=== PATIENT | female | born 1955 | race Caucasian/White ===

== ENCOUNTER 2019-12-02 08:07 | Outpatient (CLI) | payer MEDICARE ==
--- NOTE | 2019-12-02 09:54 | CT ---
CT OF ABDOMEN AND PELVIS PERFORMED WITH INTRAVENOUS CONTRAST ENHANCEMENT: HISTORY: Rectal cancer found on colonoscopy. History of diarrhea. Endometrial cancer 15 years ago with hyste rectomy and radiation. History of cholecystectomy. COMPARISON: A CT examination of 05/25/2019. FINDINGS: The lung bases are clear. The liver and spleen as well as pancreas regions appear unremarkable. An area of focal fatty change adjacent to the falciform ligament is incidentally noted. The gallbladder has been removed. Right and left adrenal glands and right and left kidneys are normal in size. There is no significant periaortic or mesenteric lymphadenopathy. CT OF PELVIS PERFORMED WITH CONTRAST ENHANCEMENT: An umbilical hernia is seen. The hernia contains colon without signs of obstruction. A portion of t he colon is a portion of the mid transverse colon. There is marked soft tissue thickening to the reg ion of the rectum consistent with the history of a rectal mass. There is also what appears to be shanita e type of perianal fissure or possibly a chronic infectious process. There is an air density seen wh ich appears to be outside the bowel and along the left side of the rectum region extending into a per ianal location on the left with soft tissue fullness. I am not certain how much of this is related t o a chronic infectious process or tumor infiltration. I do not appreciate any significant pelvic lym phadenopathy or mass. IMPRESSION: 1. Wall thickening to the rectum with some presacral fat stranding and what appears to be a left-marsha ed perianal fissure with an air collection along the left side of the rectum and anus region. There is no fluid collection. I am not certain what a portion of this is related to a chronic infectious p rocess with scarring granulation tissue and how much of this could be related to tumor infiltration. There was what appeared to be more of a perianal fluid collection on the previous 05/25/2019 exam. T here is no significant pelvic lymphadenopathy. 2. Umbilical hernia containing colon. 3. Post cholecystectomy change. POS: VAUGHN
[2019-12-02] MEDS ORDERED: Iopamidol-370 76% 500 ML 1 ML ONE (14:12)
== END 2019-12-02 08:08 | disposition home or self-care (01) ==
LOC: BICCT 08:07
PROVIDERS: ATTEND Internal Medicine Gastroenterology
DX: C20 Malignant neoplasm of rectum (principal); K42.9 Umbilical hernia without obstruction or gangrene; K62.89 Other specified diseases of anus and rectum; Z90.49 Acquired absence of other specified parts of digestive tract
CPT/HCPCS: 74177; Q9967

== ENCOUNTER 2019-12-14 07:44 | Outpatient (CLI) | payer MEDICARE ==
[2019-12-14 08:12] LABS: Estimated GFR-MDRD - POC Greater than 90
--- NOTE | 2019-12-14 08:35 | CT ---
CT CHEST WITH IV CONTRAST: INDICATION: Rectal CA. Staging. COMPARISON: No comparison. FINDINGS: Review of lung vang reveals a 5 mm pleural-based nodule anterior right middle lobe. No other pulmonary mass or nodule identified. There is no effusion or infiltrate. The mediastinum is unremarkable. No adenopathy. Mild atherosclerotic changes in the thoracic aorta. Possible pulmonary arteries opacified and there is no evidence of proximal pulmonary embolus. No a xillary adenopathy. Images through the upper abdomen are unremarkable. Osseous structures unremarka ble. IMPRESSION: A 5-6 mm pleural-based nodule anterolateral right middle lobe. Recommend followup noncontrast CT [facility] in 6 months to assess stability. POS: AGW
[2019-12-14] MEDS ORDERED: Iopamidol 370 76% 100 ML VIAL ONE (13:40)
== END 2019-12-14 07:45 | disposition home or self-care (01) ==
LOC: BICCT 07:44
PROVIDERS: ATTEND Internal Medicine Hematology & Oncology
DX: C20 Malignant neoplasm of rectum (principal); R91.1 Solitary pulmonary nodule
CPT/HCPCS: 71260; 82565; Q9967

== ENCOUNTER 2020-01-04 06:41 | Outpatient (CLI) | payer MEDICARE, OTHER ==
[2020-01-04 16:35] LABS: Anisocytosis SLIGHT = 6-15 cells (100X) (0-5/hpf); Band 18 % (5-11); Eosinophils 3 % (0-10); Hemoglobin 10.7 g/dL (12.0-16.0); Hypochromia SLIGHT = 6-15 cells (100X) (0-5/hpf); Lymphocytes 8 % (21-51); MDiff Complete? YES; Mean Corpuscular HGB CONC 31.4 g/dL (32.0-36.0); Mean Corpuscular Hemoglobin 26.6 pg (27.0-31.0); Mean Corpuscular Volume 84.8 fL (78.0-98.0); Mean Platelet Volume 7.5 fL (7.4-10.4); Monocytes 2 % (0-10); Neutrophil 69 % (42-75); Platelet Count 578 thou/uL (130-400); Platelet Morphology Comment Appears Increased; Polychromasia SLIGHT = 2-3 cells (100X) (0-2/hpf); RBC Distribution Width 15.1 % (11.5-14.5); Red Blood Cell (RBC) Count 4.01 mill/uL (4.20-5.40); White Blood Cell (WBC) Count 20.4 thou/uL (4.8-10.8)
[2020-01-04 16:41] LABS: Anion Gap 17 mmol/L (10-20); BUN (Urea Nitrogen) 10 mg/dL (9.8-20.1); Calc. Creatinine Clearance 0 mL/min (70-130); Calcium 9.3 mg/dL (7.8-10.44); Carbon Dioxide 25 mmol/L (23-31); Chloride 100 mmol/L (98-107); Estimated GFR-MDRD 79; Glucose 117 mg/dL (80-115); Potassium 3.3 mmol/L (3.5-5.1); Sodium 139 mmol/L (136-145)
[2020-01-05 14:01] LABS: SARS-CoV-2 MS2 Positive; SARS-CoV-2 N Gene Negative; SARS-CoV-2 S Gene Negative; SARS-CoV-2 orf1ab Negative
== END 2020-01-04 06:42 | disposition home or self-care (01) ==
LOC: LABBT 06:41
PROVIDERS: ATTEND Surgery
DX: Z01.812 Encounter for preprocedural laboratory examination (principal); Z11.59 Encounter for screening for other viral diseases; C21.0 Malignant neoplasm of anus, unspecified
CPT/HCPCS: 80048; 85025; U0003; 87635

== ENCOUNTER 2020-01-08 08:42 | Day surgery (SDC) | payer MEDICARE ==
[2020-01-01 13:20] VITALS: BMI 25.9
[2020-01-08] MEDS ORDERED: Lidocaine 1% w/Epinephrine 1:100K 20 ML VIAL ONE (11:05)
[2020-01-08] MEDS ORDERED: Bupivacaine 0.25% HCL 30 ML VIAL ONE (11:05)
[2020-01-08] MEDS ORDERED: Midazolam HCl 2 mg/2 ml Vial ONE (11:06)
[2020-01-08] MEDS ORDERED: Fentanyl 100 MCG/2 ML VIAL ONE (11:06)
[2020-01-08] MEDS ORDERED: PROPOFOL 20 ML ONE (11:06)
[2020-01-08] MEDS ORDERED: EPHEDRINE 25 MG/5 ML SYRINGE ONE (11:38)
[2020-01-08] MEDS ORDERED: Lidocaine 1% PF 5 ML VIAL ONE (11:38)
--- NOTE | 2020-01-08 12:20 | RAD ---
EXAM: Single view of the chest HISTORY: Mediport placement COMPARISON: None FINDINGS: Single view of the chest shows a normal sized cardiomediastinal silhouette. A left subclav mauricio Mediport is seen with its tip in superior vena cava. No pneumothorax is seen. There is no evidence of consolidation, mass, or pleural effusion. The bones are unremarkable IMPRESSION: No evidence of acute cardiopulmonary disease
--- NOTE | 2020-01-08 17:20 | PDOC.OP ---
Operative Note - Operative Note Operative Note: PROCEDURE: Left subclavian MediPort placement with fluoroscopic guidance DATE OF PROCEDURE: SURGEON: Mel Barlow M.D. PREOPERATIVE DIAGNOSIS: Anal cancer POSTOPERATIVE DIAGNOSIS: Anal cancer HISTORY: Patient has been diagnosed with locally advanced anal cancer. Chemotherapy has been recommended and a Mediport has been requested for this. OPERATIVE PROCEDURE IN DETAIL: After informed consent was obtained and appropriate preoperative antibiotics administered, the patient was taken to the operating room and placed in supine position and monitored anesthesia care was administered. The patient was then placed in Trendelenburg position and the subclavian vein accessed easily on the first attempt with excellent flow of dark venous non-pulsatile blood. A wire threaded easily and was confirmed to be in the superior vena cava by fluoroscopy. Additional local anesthesia was infused to the skin and subcutaneous tissues lateral and inferior to the access site. The skin incision was extended from the wire laterally and a subcutaneous pocket developed inferiorly. A Mediport was obtained and confirmed to fit in the subcutaneous pocket. This was secured inferiorly to the pectoralis fascia with a Prolene suture, which was clamped, but not tied. The dilator and sheath were then placed over the wire and the dilator and wire removed leaving the sheath in place. The clamped MediPort tubing was tunneled through the sheath, which was then split and removed leaving the MediPort tubing in place. The tubing was adjusted until the tip was confirmed by fluoroscopy to be in the superior vena cava just above the atrium. The tubing was clamped at the skin level and cut and the tubing secured to the port, which was then placed in the subcutaneous pocket. The previously placed suture was secured and two additional sutures were placed to fix the port in place within the pocket. The port was aspirated with the Gipson needle and had excellent flow of dark venous non-pulsatile blood and easily flushed without resistance. The subcutaneous tissues were closed with a running Monocryl suture , following which the skin was closed with a running subcuticular Monocryl suture. Dermabond dressings were placed and the hub was again accessed through the skin and confirmed to easily aspirate and easily flush. The course of the catheter was confirmed by fluoroscopy to be smooth with the tip appropriately located in the superior vena cava. The patient was taken back to the day stay unit in good condition. Estimated blood loss was minimal. There were no complications. There were no specimens.
== END 2020-01-08 13:20 | disposition home or self-care (01) ==
LOC: SDC 08:42
PROVIDERS: ATTEND Surgery
PROC: 0JH63WZ Insertion of Totally Implantable Vascular Access Device into Chest Subcutaneous Tissue and Fascia, Percutaneous Approach (ICD-10-PCS; principal; 2020-01-08)
PROC: 02HV33Z Insertion of Infusion Device into Superior Vena Cava, Percutaneous Approach (ICD-10-PCS; 2020-01-08)
PROC: B518ZZA Fluoroscopy of Superior Vena Cava, Guidance (ICD-10-PCS; 2020-01-08)
DX: C21.0 Malignant neoplasm of anus, unspecified (principal); I10 Essential (primary) hypertension; D53.9 Nutritional anemia, unspecified; E03.9 Hypothyroidism, unspecified; F17.200 Nicotine dependence, unspecified, uncomplicated; Z79.84 Long term (current) use of oral hypoglycemic drugs; Z79.899 Other long term (current) drug therapy; Z88.5 Allergy status to narcotic agent; Z91.048 Other nonmedicinal substance allergy status
CPT/HCPCS: 36561; 71045; C1788; J0690; J1642; J2250; J2704; J3010; S0020

== ENCOUNTER 2020-02-18 13:50 | Day surgery (SDC) | payer MEDICARE ==
[2020-02-18] MEDS ORDERED: Sodium Chloride 0.9% 30 ML ONE (13:54)
[2020-02-18] MEDS ORDERED: diphenhydrAMINE 25 MG CAP PO SCH (14:30)
[2020-02-18] MEDS ORDERED: Acetaminophen 500 MG TAB PO SCH (14:30)
[2020-02-18 16:49] VITALS: BP 136/67; TEMP 98.3
== END 2020-02-18 16:54 | disposition home or self-care (01) ==
LOC: ONC/OP 13:50
PROVIDERS: ATTEND Internal Medicine Hematology & Oncology
PROC: 30233N1 Transfusion of Nonautologous Red Blood Cells into Peripheral Vein, Percutaneous Approach (ICD-10-PCS; principal; 2020-02-18)
DX: D64.9 Anemia, unspecified (principal); D69.6 Thrombocytopenia, unspecified; Z88.5 Allergy status to narcotic agent; Z91.048 Other nonmedicinal substance allergy status
CPT/HCPCS: 36430; 86850; 86900; 86901; J1642; P9016; Q0163

== ENCOUNTER 2020-04-25 07:00 | Outpatient (CLI) | payer MEDICARE ==
[2020-04-25 15:09] LABS: #Eosinphils 0.1 10x3/uL (0.0-0.5); #Monocytes 0.5 10x3/uL (0.0-1.1); #Neutrophils 6.7 10x3/uL (1.5-8.4); %Basophils 0.3 % (0.0-2.0); %Lymphocytes 5.9 % (18.0-47.0); %Monocytes 6.8 % (0.0-10.0); Hemoglobin 8.9 g/dL (12.0-16.0); Mean Corpuscular HGB CONC 30.4 G/DL (32.0-36.0); Mean Corpuscular Hemoglobin 30.2 PG (27.0-33.0); Mean Corpuscular Volume 99.3 fl (80.0-100.0); Mean Platelet Volume 9.6 fl (7.4-10.4); Platelet Count 381 10x3/uL (130-400); RBC Distribution Width 15.4 % (11.5-14.5); Red Blood Cell (RBC) Count 2.95 10x6/uL (3.90-5.20); White Blood Cell (WBC) Count 7.9 10x3/uL (4.5-11.0)
--- NOTE | 2020-04-25 15:17 | RAD ---
PA AND LATERAL VIEWS CHEST: Date: 04/25/2020 HISTORY: Preoperative evaluation. Malignant neoplasm of anus. COMPARISON: 01/08/2020. FINDINGS: Left-sided Port-A-Cath remains in place. The heart size is normal. The lungs are well expanded withou t lobar consolidation, pneumothoraces, or pleural effusions. There are mild degenerative changes in t he spine. IMPRESSION: No radiographic evidence of acute cardiopulmonary process. POS: AH
[2020-04-25 15:19] LABS: ALT (SGPT) Less than 6 U/L (8-55); AST (SGOT) 6 U/L (5-34); Albumin 3.5 g/dL (3.4-4.8); Alkaline Phosphatase 52 U/L (40-110); Anion Gap 18 mmol/L (10-20); BUN (Urea Nitrogen) 9 mg/dL (9.8-20.1); Bilirubin, Total 0.4 mg/dL (0.2-1.2); Calc. Creatinine Clearance 0 mL/min (70-130); Carbon Dioxide 22 mmol/L (23-31); Chloride 105 mmol/L (98-107); Estimated GFR-MDRD 79; Globulin 2.6 g/dL (2.4-3.5); Glucose 133 mg/dL (80-115); Potassium 3.9 mmol/L (3.5-5.1); Protein, Total 6.1 g/dL (6.0-8.3); Sodium 141 mmol/L (136-145)
--- NOTE | 2020-04-25 21:09 | EKG ---
Test Reason : PREOP Blood Pressure : / mmHG Vent. Rate : 066 BPM Atrial Rate : 066 BPM P-R Int : 132 ms QRS Dur : 128 ms QT Int : 432 ms P-R-T Axes : 049 069 070 degrees QTc Int : 452 ms Normal sinus rhythm Right bundle branch block Abnormal ECG No previous ECGs available Confirmed by Lorna DIOR ([id number]) on 04/25/2020 9:09:26 PM Referred By: CHRISTINA Confirmed By:Lorna DIOR
[2020-04-25 21:14] LABS: Hemoglobin A1c 4.4 % (4.0-6.0)
[2020-04-26 12:09] LABS: SARS-CoV-2 MS2 Positive; SARS-CoV-2 N Gene Negative; SARS-CoV-2 S Gene Negative; SARS-CoV-2 by NAA Not Detected (NotDetected); SARS-CoV-2 orf1ab Negative
== END 2020-04-25 07:01 | disposition home or self-care (01) ==
LOC: LABBT 07:00
PROVIDERS: ATTEND Surgery
DX: Z01.818 Encounter for other preprocedural examination (principal); C21.0 Malignant neoplasm of anus, unspecified; Z20.828 Contact with and (suspected) exposure to other viral communicable diseases
CPT/HCPCS: 71046; 80053; 83036; 85025; 93005; U0003; 87635; 93010

== ENCOUNTER 2020-04-25 13:30 | Inpatient (IN) | payer MEDICARE ==
[2020-04-27 14:37] VITALS: BMI 24.3
[2020-04-28] MEDS ORDERED: Acetaminophen 500 MG TAB ONE (10:21)
[2020-04-28] MEDS ORDERED: Ketorolac Tromethamine 30 MG/ML VIAL ONE (10:21)
[2020-04-28] MEDS ORDERED: cefOXitin Sodium/Dextrose 2 GM/50 ML BAG ONE (10:22)
[2020-04-28] MEDS ORDERED: Midazolam HCl 2 mg/2 ml Vial ONE ×3 (10:56→12:29)
[2020-04-28] MEDS ORDERED: Famotidine/PF 20 mg/2ml Vial ONE (10:56)
[2020-04-28] MEDS ORDERED: Fentanyl 250 MCG/5 ML VIAL ONE (10:56)
[2020-04-28] MEDS ORDERED: SUGAMMADEX SODIUM 200 MG/2 ML VIAL ONE (10:57)
[2020-04-28] MEDS ORDERED: PROPOFOL 20 ML ONE (11:05)
[2020-04-28] MEDS ORDERED: Fentanyl 100 MCG/2 ML VIAL ONE ×2 (11:07→15:29)
[2020-04-28] MEDS ORDERED: Scopolamine 1.5 mg/72 hour Patch ONE (11:07)
[2020-04-28] MEDS ORDERED: EPINEPHrine 1 MG/ML AMP ONE (11:17)
[2020-04-28] MEDS ORDERED: Bupivacaine PF 0.5% 30 ML VIAL ONE (11:17)
[2020-04-28] MEDS ORDERED: Dexamethasone 20 MG/5 ML VIAL ONE (11:51)
[2020-04-28] MEDS ORDERED: diphenhydrAMINE 50 MG/ML VIAL ONE (11:51)
[2020-04-28] MEDS ORDERED: EPHEDRINE 25 MG/5 ML SYRINGE ONE (11:51)
[2020-04-28] MEDS ORDERED: Rocuronium Bromide 10 MG/ML (10ML VIAL) ONE (11:51)
[2020-04-28] MEDS ORDERED: PHENYLEPHRINE-NS 100 MCG/ML 10 ML SYRINGE ONE (11:51)
[2020-04-28] MEDS ORDERED: PROPOFOL 200 MG/20 ML VIAL ONE (11:51)
[2020-04-28] MEDS ORDERED: Ondansetron PF 4 MG/2 ML Vial ONE ×2 (11:51→15:29)
[2020-04-28] MEDS ORDERED: Glycopyrrolate 0.2 MG/ML 5 ML SYRINGE ONE (11:51)
[2020-04-28] MEDS ORDERED: Bupivacaine HCl 0.5%/Epinephrine 1:200,000/PF 30 ml Vial ONE (11:51)
[2020-04-28] MEDS ORDERED: Ketamine 50 MG/ML (10ML VIAL) ONE (12:29)
[2020-04-28] MEDS ORDERED: Phenylephrine 10 MG/ML VIAL ONE (12:30)
[2020-04-28] MEDS ORDERED: Promethazine HCl 25 MG/ML VIAL SLOW IVP PRN (15:03)
[2020-04-28] MEDS ORDERED: HYDROmorphone 2 MG/ML VIAL SLOW IVP PRN (15:03)
[2020-04-28] MEDS ORDERED: Ondansetron HCl/PF 4 MG/2 ML Vial IVP PRN (15:03)
[2020-04-28] MEDS ORDERED: Promethazine HCl 25 MG/ML VIAL IM PRN ×2 (15:03→15:51)
[2020-04-28] MEDS ORDERED: hydrALAZINE 20 MG/ML VIAL SLOW IVP PRN (15:51)
[2020-04-28] MEDS ORDERED: Ondansetron PF 4 MG/2 ML Vial IVP PRN (15:51)
[2020-04-28] MEDS ORDERED: traMADol HCl 50 MG TAB PO PRN (15:54)
--- NOTE | 2020-04-28 17:05 | PDOC.OP ---
Operative Note - Operative Note Operative Note: PROCEDURE: Umbilical hernia repair, laparoscopic colostomy, and proctoscopy and rectal exam under anesthesia with biopsies SURGEON: Mel Barlow M.D. 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 She has decided to proceed with colostomy for quality of life issues. She was incidentally noted to have a large umbilical hernia which will be repaired under the same an esthesia, and rectal exam with biopsies to assess response to treatment. FINDINGS: Large umbilical hernia with extensive omental adhesions. Sigmoid colon grossly normal and suitable for use as end colostomy. Extensive ulcerated necrotic tissue in the rectum circumferentially. PROCEDURE IN DETAIL: After informed consent was obtained and appropriate bowel preparation and preoperative antibiotics administered, the patient was taken to the operating room where she was placed in supine position and general anesthesia was administered. A tap block had been performed preoperatively. She was prepped and draped in standard sterile fashion and placed in supine position. A transverse incision was made over the large umbilical hernia which was dissected free to the level of the fascia. It was densely adherent to the umbilical skin. After dissecting it away from the umbilical skin the umbilical skin appeared ischemic and this was resected and discarded. The hernia sac was opened and extensive omental adhesions taken down. The omentum was reduced into the abdominal cavity and no intra-abdominal adhesions palpated. A 12 mm trocar was placed into the hernia defect and carbon dioxide gas insufflated to an intra-abdominal pressure of 12 which the patient tolerated well. The laparoscope was advanced into the abdominal cavity which was carefully examined. There was no evidence of trocar injury. The omentum which had been reduced from the hernia sac appeared viable. The patient was noted to have additional omental adhesions to the upper midline and appeared to have a large mesh in place. For this reason the other ports were placed lateral to the mesh in the right abdomen. 5 mm trochars were placed in the right abdomen under direct laparoscopic vision and the sigmoid colon identified. This appeared grossly normal and appeared to have enough laxity to reach to the left lower quadrant abdominal wall. The white line of Toldt was incised and the sigmoid colon mobilized medially. A window was created through the mesentery and a stapler placed across the distal sigmoid colon and fired, dividing the sigmoid colon. This was found to reach to the abdominal wall without tension. A circular incision was made overlying the rectus sheath in the left lower quadrant. Anterior rectus sheath was incised in a cruciate manner and the underlying rectus muscles split longitudinally. The posterior rectus sheath was incised in a cruciate manner and the tract dilated. The sigmoid colon was brought out through the defect and secured with a Duchesne in the correct orientation. The right-sided ports were removed under laparoscopic vision and hemostasis verified. The umbilical trocar was then removed and the large umbilical hernia sac resected and discarded. There was a large defect in the subcutaneous space which was unable to be closed with sutures. For this reason a INDRA drain was placed into the defect and drawn out laterally in the right lower quadrant and secured with a drain stitch. The fascial defect was closed transversely with running PDS suture with excellent technical result. The subcutaneous tissues were irrigated and hemostasis verified. The skin was then closed with a running 4-0 Monocryl suture and Dermabond dressings placed to this incision and to the laparoscopic port sites. The colostomy was then matured. The colostomy was secured to the anterior rectus sheath circumferentially with Lembert sutures. The staple line was then excised and an everted akiak colostomy created. The dermis was secured to Lembert sutures couple centimeters away from the edge of the colostomy and then to the full-thickness of the edge of the colostomy in 4 quadrants. The dermis was secured to the full-thickness of the edge of the colostomy circumferentially at intervals. The colostomy appeared healthy and was widely patent to digital palpation. A colostomy appliance was applied and the patient was placed in lithotomy for proctoscopy and examination under anesthesia. On digital rectal examination there was ulcerated and irregular tissue circumferentially for the length of the examining finger. She had several large external hemorrhoids as well. No visible external abnormalities. On proctoscopy there was ulcerated and necrotic appearing tissue involving the entire lower rectum. Multiple random biopsies were taken. The patient was ext ubated and taken to recovery in good condition. Estimated blood loss was minimal. There were no complications. Specimens are rectal biopsies.
[2020-04-28] MEDS: Ketorolac Tromethamine 30 MG/ML VIAL IVP SCH ×2 (18:26→23:48)
[2020-04-28] MEDS: cefOXitin Sodium/Dextrose,Iso 1 GM in Premix Bag 1 BAG IVPB SCH (21:30)
[2020-04-28] MEDS: Famotidine/PF 20 mg/2ml Vial SLOW IVP SCH (21:30)
[2020-04-28] MEDS: Famotidine 20 MG TAB PO SCH (21:31)
[2020-04-29] MEDS: cefOXitin Sodium/Dextrose,Iso 1 GM in Premix Bag 1 BAG IVPB SCH (05:10)
[2020-04-29] MEDS: Ketorolac Tromethamine 30 MG/ML VIAL IVP SCH ×4 (05:10→23:36)
[2020-04-29 05:59] LABS: #Lymphocytes 0.5 thou/uL (1.20-3.40); #Monocytes 0.4 thou/uL (0.11-0.59); #Neutrophils 5.2 thou/uL (1.40-6.50); %Eosinophils 0.8 % (0.0-10.0); %Monocytes 6.8 % (0.0-10.0); %Neutrophils 84.4 % (42.0-75.0); Mean Corpuscular HGB CONC 32.8 g/dL (32.0-36.0); Mean Corpuscular Hemoglobin 31.9 pg (27.0-31.0); Mean Corpuscular Volume 97.3 fL (78.0-98.0); Mean Platelet Volume 6.6 fL (7.4-10.4); Platelet Count 277 thou/uL (130-400); Red Blood Cell (RBC) Count 2.52 mill/uL (4.20-5.40); White Blood Cell (WBC) Count 6.2 thou/uL (4.8-10.8)
[2020-04-29 06:19] LABS: Anion Gap 10 mmol/L (10-20); BUN (Urea Nitrogen) 7 mg/dL (9.8-20.1); Calc. Creatinine Clearance 93 mL/min (70-130); Calcium 8.7 mg/dL (7.8-10.44); Carbon Dioxide 27 mmol/L (23-31); Chloride 106 mmol/L (98-107); Estimated GFR-MDRD 78; Glucose 94 mg/dL (80-115); Potassium 3.4 mmol/L (3.5-5.1); Sodium 140 mmol/L (136-145)
[2020-04-29] MEDS ORDERED: FLU VACC QS2020-21(65YR UP)/PF 240 MCG/0.7 ML SYRINGE IM ONE (09:00)
[2020-04-29] MEDS: Famotidine/PF 20 mg/2ml Vial SLOW IVP SCH ×2 (10:08→20:34)
[2020-04-29] MEDS: Famotidine 20 MG TAB PO SCH ×2 (10:11→20:34)
[2020-04-29 14:03] LABS: #Eosinphils 0.1 thou/uL (0.0-0.7); #Lymphocytes 0.3 thou/uL (1.20-3.40); #Monocytes 0.6 thou/uL (0.11-0.59); #Neutrophils 5.9 thou/uL (1.40-6.50); %Lymphocytes 4.6 % (21.0-51.0); %Monocytes 8.4 % (0.0-10.0); Hemoglobin 7.8 g/dL (12.0-16.0); Mean Corpuscular HGB CONC 32.6 g/dL (32.0-36.0); Mean Corpuscular Hemoglobin 32.2 pg (27.0-31.0); Mean Corpuscular Volume 98.8 fL (78.0-98.0); Mean Platelet Volume 6.9 fL (7.4-10.4); Platelet Count 277 thou/uL (130-400); RBC Distribution Width 14.9 % (11.5-14.5); Red Blood Cell (RBC) Count 2.41 mill/uL (4.20-5.40); White Blood Cell (WBC) Count 6.9 thou/uL (4.8-10.8)
[2020-04-29] MEDS: Enoxaparin Sodium 40 MG/0.4 ML SYRINGE SC SCH (14:32)
[2020-04-29] MEDS ORDERED: Acetaminophen 650 MG Suppository PR PRN (15:53)
[2020-04-30] MEDS: traMADol HCl 50 MG TAB PO PRN ×2 (04:01→23:44)
[2020-04-30 05:04] LABS: #Eosinphils 0.1 thou/uL (0.0-0.7); #Lymphocytes 0.3 thou/uL (1.20-3.40); #Monocytes 0.4 thou/uL (0.11-0.59); #Neutrophils 4.5 thou/uL (1.40-6.50); %Eosinophils 1.6 % (0.0-10.0); %Lymphocytes 6.1 % (21.0-51.0); %Monocytes 8.2 % (0.0-10.0); %Neutrophils 84.1 % (42.0-75.0); Hemoglobin 7.3 g/dL (12.0-16.0); Mean Corpuscular HGB CONC 32.4 g/dL (32.0-36.0); Mean Corpuscular Hemoglobin 31.6 pg (27.0-31.0); Mean Corpuscular Volume 97.7 fL (78.0-98.0); Mean Platelet Volume 6.8 fL (7.4-10.4); Platelet Count 225 thou/uL (130-400); White Blood Cell (WBC) Count 5.4 thou/uL (4.8-10.8)
[2020-04-30] MEDS: Ketorolac Tromethamine 30 MG/ML VIAL IVP SCH ×4 (05:47→23:45)
--- NOTE | 2020-04-30 08:43 | PRG ---
DATE OF SERVICE: 04/30/2020 SUBJECTIVE: Ms. Egan is postoperative day #2 from laparoscopic colostomy creation secondary to extensive anal cancer. She is in foul mood this morning, tells me she is mad about a number of things. She is upset about her ostomy and upset that she is hungry and upset at foods that she is told that she cannot eat. She notes mild appropriate discomfort in her abdomen. She tells me she has had ostomy output, although her bag is currently empty. OBJECTIVE: VITAL SIGNS: On examination, she is afebrile. Vital signs within normal limits. LUNGS: Clear. HEART: Regular rate and rhythm. ABDOMEN: Soft with minimal tenderness. Excellent bowel sounds. Her INDRA drain is in place with small amount of serosanguineous fluid. It is noted that for yesterday, 30 mL came out. LABORATORY DATA: Show persistent anemia with a hemoglobin of 7.3, white blood cell count is stable at 5.4. There is no chemistry panel obtained today. ASSESSMENT AND PLAN: She is stable following laparoscopic colostomy creation. I will advance her diet today. I told her that from my standpoint that she can eat whatever she wants to in regard to her ostomy. We will arrange ostomy teaching here in the hospital and arrange home health nursing for ostomy care assistance upon discharge. I would anticipate she will be ready for discharge tomorrow. Job ID: [id number]
[2020-04-30] MEDS: Famotidine 20 MG TAB PO SCH ×2 (08:55→20:59)
[2020-04-30] MEDS: Acetaminophen 325 MG TAB PO PRN (08:55)
[2020-04-30] MEDS: Enoxaparin Sodium 40 MG/0.4 ML SYRINGE SC SCH (08:58)
[2020-04-30] MEDS: Famotidine/PF 20 mg/2ml Vial SLOW IVP SCH ×2 (08:59→20:59)
[2020-05-01] MEDS: Ketorolac Tromethamine 30 MG/ML VIAL IVP SCH ×2 (06:37→11:29)
[2020-05-01] MEDS: Famotidine 20 MG TAB PO SCH (08:22)
[2020-05-01] MEDS: Enoxaparin Sodium 40 MG/0.4 ML SYRINGE SC SCH (08:22)
[2020-05-01] MEDS: Famotidine/PF 20 mg/2ml Vial SLOW IVP SCH (08:23)
[2020-05-01 08:25] LABS: #Eosinphils 0.1 thou/uL (0.0-0.7); #Lymphocytes 0.4 thou/uL (1.20-3.40); #Monocytes 0.4 thou/uL (0.11-0.59); #Neutrophils 5.2 thou/uL (1.40-6.50); %Eosinophils 1.9 % (0.0-10.0); %Lymphocytes 7.2 % (21.0-51.0); %Monocytes 6.7 % (0.0-10.0); %Neutrophils 84.2 % (42.0-75.0); Mean Corpuscular HGB CONC 31.4 g/dL (32.0-36.0); Mean Corpuscular Hemoglobin 30.6 pg (27.0-31.0); Mean Corpuscular Volume 97.4 fL (78.0-98.0); Mean Platelet Volume 6.8 fL (7.4-10.4); Platelet Count 290 thou/uL (130-400); Red Blood Cell (RBC) Count 2.61 mill/uL (4.20-5.40); White Blood Cell (WBC) Count 6.2 thou/uL (4.8-10.8)
[2020-05-01] MEDS: Acetaminophen 325 MG TAB PO PRN (11:30)
[2020-05-01 12:43] VITALS: BP 131/73; TEMP 97.7
== END 2020-05-01 13:59 | disposition home or self-care (01) | DRG 329 ==
LOC: SURG A 04-28 10:09 → SURG B 04-28 17:10
PROVIDERS: ADMIT Surgery; ATTEND Surgery
PROC: 0D1N4Z4 Bypass Sigmoid Colon to Cutaneous, Percutaneous Endoscopic Approach (ICD-10-PCS; principal; 2020-04-28)
PROC: 0WQF4ZZ Repair Abdominal Wall, Percutaneous Endoscopic Approach (ICD-10-PCS; 2020-04-28)
PROC: 0DBP8ZX Excision of Rectum, Via Natural or Artificial Opening Endoscopic, Diagnostic (ICD-10-PCS; 2020-04-28)
DX: C21.8 Malignant neoplasm of overlapping sites of rectum, anus and anal canal (principal); K55.049 Acute infarction of large intestine, extent unspecified; N82.3 Fistula of vagina to large intestine; K44.9 Diaphragmatic hernia without obstruction or gangrene; E11.9 Type 2 diabetes mellitus without complications; E07.9 Disorder of thyroid, unspecified; Z20.828 Contact with and (suspected) exposure to other viral communicable diseases; Z85.42 Personal history of malignant neoplasm of other parts of uterus; Z92.3 Personal history of irradiation; Z79.899 Other long term (current) drug therapy; Z79.890 Hormone replacement therapy; Z79.84 Long term (current) use of oral hypoglycemic drugs; Z90.710 Acquired absence of both cervix and uterus; Z88.5 Allergy status to narcotic agent; Z28.21 Immunization not carried out because of patient refusal
CPT/HCPCS: 36415; 36416; 71046; 80048; 80053; 83036; 85025; 87635; 88305; 93005; J0171; J0690; J0694; J1100; J1200; J1642; J1650; J1885; J2250; J2370; J2405; J2704; J3010; S0020; S0028; U0003

== ENCOUNTER 2020-08-24 11:15 | Inpatient (IN) | payer MEDICARE ==
[2020-08-25 10:17] VITALS: BMI 22.6
[2020-08-26] MEDS ORDERED: Fentanyl 100 MCG/2 ML VIAL ONE (06:41)
[2020-08-26] MEDS ORDERED: Famotidine/PF 20 mg/2ml Vial ONE (06:41)
[2020-08-26] MEDS ORDERED: Midazolam HCl 2 mg/2 ml Vial ONE (06:41)
[2020-08-26] MEDS ORDERED: Scopolamine 1.5 mg/72 hour Patch ONE (06:42)
[2020-08-26] MEDS ORDERED: Ketorolac Tromethamine 30 MG/ML VIAL ONE ×2 (06:57→09:42)
[2020-08-26] MEDS ORDERED: cefOXitin Sodium/Dextrose 2 GM/50 ML BAG ONE (06:57)
[2020-08-26] MEDS ORDERED: Ketamine 50 MG/ML (10ML VIAL) ONE (07:52)
[2020-08-26] MEDS ORDERED: Lidocaine 1% w/Epinephrine 1:100K 20 ML VIAL ONE (08:47)
[2020-08-26] MEDS ORDERED: Bupivacaine 0.25% HCL 30 ML VIAL ONE (08:47)
[2020-08-26] MEDS ORDERED: ePHEDrine 50 MG/ML VIAL ONE (09:42)
[2020-08-26] MEDS ORDERED: Lidocaine 1% PF 5 ML VIAL ONE (09:42)
[2020-08-26] MEDS ORDERED: Rocuronium Bromide 10 MG/ML (10ML VIAL) ONE (09:42)
[2020-08-26] MEDS ORDERED: PROPOFOL 200 MG/20 ML VIAL ONE (09:42)
[2020-08-26] MEDS ORDERED: Dexamethasone 20 MG/5 ML VIAL ONE (09:42)
[2020-08-26] MEDS ORDERED: Lidocaine 2% Jelly 5 ML TUBE ONE (09:55)
[2020-08-26] MEDS ORDERED: Bacitracin Zinc Ointment 30 gm TUBE ONE (09:55)
[2020-08-26] MEDS ORDERED: Ondansetron PF 4 MG/2 ML Vial IVP PRN (11:05)
[2020-08-26] MEDS ORDERED: HYDROcodone/Acetaminophen 5/325 mg Tablet PO PRN ×2 (11:07)
[2020-08-26] MEDS ORDERED: Ibuprofen 200 MG TAB PO PRN ×3 (11:08)
[2020-08-26] MEDS ORDERED: traMADol HCl 50 MG TAB PO PRN (11:09)
[2020-08-26] MEDS ORDERED: Acetaminophen 325 MG TAB PO PRN ×2 (11:10)
[2020-08-26] MEDS ORDERED: Lidocaine 2% Jelly 30 GM TUBE TOP PRN (11:11)
[2020-08-26] MEDS ORDERED: FLU VACC QS2020-21(65YR UP)/PF 240 MCG/0.7 ML SYRINGE IM ONE (12:45)
[2020-08-26] MEDS: cefOXitin Sodium/Dextrose,Iso 1 GM in Premix Bag 1 BAG IVPB SCH ×2 (15:47→22:17)
[2020-08-26] MEDS: traMADol HCl 50 MG TAB PO PRN (22:21)
[2020-08-27] MEDS: Levothyroxine 150 MCG TAB PO SCH (05:13)
[2020-08-27] MEDS: traMADol HCl 50 MG TAB PO PRN (06:51)
[2020-08-27 07:38] LABS: #Eosinphils 0.1 thou/uL (0.0-0.7); #Lymphocytes 0.6 thou/uL (1.20-3.40); #Monocytes 0.5 thou/uL (0.11-0.59); %Basophils 0.3 % (0.0-1.0); %Eosinophils 1.2 % (0.0-10.0); %Lymphocytes 11.7 % (21.0-51.0); %Monocytes 9.9 % (0.0-10.0); %Neutrophils 76.9 % (42.0-75.0); Hemoglobin 10.6 g/dL (12.0-16.0); Mean Corpuscular HGB CONC 33.2 g/dL (32.0-36.0); Mean Corpuscular Hemoglobin 31.1 pg (27.0-31.0); Mean Corpuscular Volume 93.8 fL (78.0-98.0); Mean Platelet Volume 7.3 fL (7.4-10.4); Platelet Count 234 thou/uL (130-400); RBC Distribution Width 14.1 % (11.5-14.5); Red Blood Cell (RBC) Count 3.41 mill/uL (4.20-5.40); White Blood Cell (WBC) Count 5.2 thou/uL (4.8-10.8)
[2020-08-27 07:54] LABS: Anion Gap 13 mmol/L (10-20); BUN (Urea Nitrogen) 8 mg/dL (9.8-20.1); Calc. Creatinine Clearance 86 mL/min (70-130); Calcium 8.9 mg/dL (7.8-10.44); Carbon Dioxide 22 mmol/L (23-31); Chloride 110 mmol/L (98-107); Glucose 75 mg/dL (80-115); Potassium 3.5 mmol/L (3.5-5.1); Sodium 141 mmol/L (136-145)
[2020-08-27] MEDS ORDERED: Lidocaine 2% Jelly 5 ML TUBE TOP PRN (11:45)
[2020-08-28] MEDS: Levothyroxine 150 MCG TAB PO SCH (07:16)
[2020-08-28 08:46] VITALS: TEMP 97.5
[2020-08-28 12:44] VITALS: BP 125/67
== END 2020-08-28 15:30 | disposition home or self-care (01) | DRG 348 ==
LOC: SURG A 08-26 06:10 → EDSTATUS 08-26 11:15 → SURG B 08-26 11:46
PROVIDERS: ADMIT Surgery; ATTEND Surgery
PROC: 0DBQ8ZX Excision of Anus, Via Natural or Artificial Opening Endoscopic, Diagnostic (ICD-10-PCS; principal; 2020-08-26)
PROC: 06BY0ZC Excision of Hemorrhoidal Plexus, Open Approach (ICD-10-PCS; 2020-08-26)
PROC: 0DBP8ZX Excision of Rectum, Via Natural or Artificial Opening Endoscopic, Diagnostic (ICD-10-PCS; 2020-08-26)
DX: Z43.3 Encounter for attention to colostomy (principal); C21.0 Malignant neoplasm of anus, unspecified; I10 Essential (primary) hypertension; E11.9 Type 2 diabetes mellitus without complications; E03.9 Hypothyroidism, unspecified; K64.4 Residual hemorrhoidal skin tags; Z90.49 Acquired absence of other specified parts of digestive tract; Z79.890 Hormone replacement therapy; Z90.710 Acquired absence of both cervix and uterus; Z90.89 Acquired absence of other organs; Z88.6 Allergy status to analgesic agent; Z92.3 Personal history of irradiation; Z92.21 Personal history of antineoplastic chemotherapy
CPT/HCPCS: 36415; 36416; 71046; 80048; 83036; 85025; 87635; 88304; 88305; 93005; 93010; J0694; J1100; J1885; J2250; J2704; J3010; J3490; S0020; S0028; U0003; U0005

== ENCOUNTER 2020-08-24 11:17 | Outpatient (CLI) | payer MEDICARE ==
[2020-08-24 12:33] LABS: #Eosinphils 0.1 10x3/uL (0.0-0.5); #Monocytes 0.5 10x3/uL (0.0-1.1); #Neutrophils 3.6 10x3/uL (1.5-8.4); %Basophils 0.4 % (0.0-2.0); %Eosinophils 1.7 % (0.0-6.0); %Lymphocytes 11.4 % (18.0-47.0); %Monocytes 11.2 % (0.0-10.0); %Neutrophils 74.9 % (40.0-75.0); Hemoglobin 11.9 g/dL (12.0-15.5); Mean Corpuscular HGB CONC 31.8 g/dL (32.0-36.0); Mean Corpuscular Hemoglobin 29.8 pg (27.0-33.0); Mean Corpuscular Volume 93.5 fl (81.6-98.3); Platelet Count 261 10x3/uL (150-450); RBC Distribution Width 14.6 % (11.5-14.5); White Blood Cell (WBC) Count 4.8 10x3/uL (3.5-10.5)
[2020-08-24 12:49] LABS: Anion Gap 14 mmol/L (10-20); BUN (Urea Nitrogen) 10 mg/dL (9.8-20.1); Calc. Creatinine Clearance 0 mL/min (70-130); Calcium 9.6 mg/dL (7.8-10.44); Carbon Dioxide 24 mmol/L (23-31); Chloride 109 mmol/L (98-107); Glucose 96 mg/dL (80-115); Potassium 4.3 mmol/L (3.5-5.1); Sodium 143 mmol/L (136-145)
[2020-08-24 17:20] LABS: Hemoglobin A1c 5.4 % (4.0-6.0)
[2020-08-24 21:51] LABS: SARS-CoV-2 PCR by NAA Not Detected (NotDetected)
== END 2020-08-24 11:18 | disposition home or self-care (01) ==
LOC: LABBT 11:17
PROVIDERS: ATTEND Surgery
DX: Z01.818 Encounter for other preprocedural examination (principal); K94.00 Colostomy complication, unspecified; Z20.822 Contact with and (suspected) exposure to COVID-19
CPT/HCPCS: 71046; 80048; 83036; 85025; 93005; U0003; U0005; 87635; 93010

== ENCOUNTER 2020-09-12 08:40 | Outpatient (CLI) | payer MEDICARE ==
[2020-09-12] MEDS ORDERED: Iopamidol-370 76% 500 ML 1 ML ONE (14:10)
== END 2020-09-12 08:41 | disposition home or self-care (01) ==
LOC: BICCT 08:40
PROVIDERS: ATTEND Radiology Radiation Oncology
DX: C21.1 Malignant neoplasm of anal canal (principal); R91.1 Solitary pulmonary nodule; Z90.49 Acquired absence of other specified parts of digestive tract; Z90.710 Acquired absence of both cervix and uterus
CPT/HCPCS: 71260; 74177; Q9967

== ENCOUNTER 2020-12-22 12:35 | Outpatient (CLI) | payer MEDICARE ==
[2020-12-22 14:26] LABS: #Eosinphils 0.1 10x3/uL (0.0-0.5); #Monocytes 0.5 10x3/uL (0.0-1.1); #Neutrophils 3.6 10x3/uL (1.5-8.4); %Basophils 0.4 % (0.0-2.0); %Eosinophils 1.6 % (0.0-6.0); %Lymphocytes 14.6 % (18.0-47.0); %Monocytes 9.6 % (0.0-10.0); %Neutrophils 73.2 % (40.0-75.0); Hemoglobin 13.1 g/dL (12.0-15.5); Mean Corpuscular HGB CONC 32.2 g/dL (32.0-36.0); Mean Corpuscular Hemoglobin 29.3 pg (27.0-33.0); Mean Corpuscular Volume 91.1 fl (81.6-98.3); Mean Platelet Volume 10.1 fl (7.4-10.4); Platelet Count 281 10x3/uL (150-450); RBC Distribution Width 14.5 % (11.5-14.5); Red Blood Cell (RBC) Count 4.47 10x6/uL (3.90-5.03); White Blood Cell (WBC) Count 4.9 10x3/uL (3.5-10.5)
[2020-12-22 14:39] LABS: ALT (SGPT) 25 U/L (8-55); AST (SGOT) 16 U/L (5-34); Albumin 3.9 g/dL (3.4-4.8); Alkaline Phosphatase 88 U/L (40-110); Anion Gap 15 mmol/L (10-20); BUN (Urea Nitrogen) 13 mg/dL (9.8-20.1); Bilirubin, Total 0.9 mg/dL (0.2-1.2); Calc. Creatinine Clearance 0 mL/min (70-130); Calcium 9.9 mg/dL (7.8-10.44); Carbon Dioxide 24 mmol/L (23-31); Chloride 105 mmol/L (98-107); Globulin 2.7 g/dL (2.4-3.5); Glucose 97 mg/dL (80-115); Potassium 4.4 mmol/L (3.5-5.1); Protein, Total 6.6 g/dL (5.8-8.1); Sodium 140 mmol/L (136-145)
== END 2020-12-22 12:36 | disposition home or self-care (01) ==
LOC: LABBT 12:35
PROVIDERS: ATTEND Internal Medicine Cardiovascular Disease
DX: Z01.812 Encounter for preprocedural laboratory examination (principal); R94.39 Abnormal result of other cardiovascular function study; Z20.822 Contact with and (suspected) exposure to COVID-19
CPT/HCPCS: 80053; 85025

== ENCOUNTER → 2020-12-27 | Day surgery (SDC) | payer MEDICARE ==
[2020-12-23 09:51] VITALS: BMI 30.7
[~2020-12-27] MED LIST: Fentanyl 100 MCG/2 ML VIAL ONE; Heparin 10,000 UNITS/ 10 ML VIAL ONE; Iopamidol 370 76% 100 ML VIAL ONE; Lidocaine 1% (PF) 30 ML VIAL ONE; Midazolam HCl 2 mg/2 ml Vial ONE; Nitroglycerin 100MG/250ML BOT 250 ML ONE; Verapamil 5 MG/2 ML VIAL ONE
== END ==
LOC: CCL 06:07
PROVIDERS: ATTEND Internal Medicine Cardiovascular Disease
PROC: 4A023N7 Measurement of Cardiac Sampling and Pressure, Left Heart, Percutaneous Approach (ICD-10-PCS; principal; 2020-12-27)
PROC: B2111ZZ Fluoroscopy of Multiple Coronary Arteries using Low Osmolar Contrast (ICD-10-PCS; 2020-12-27)
DX: Q24.5 Malformation of coronary vessels (principal); R94.39 Abnormal result of other cardiovascular function study; R53.83 Other fatigue; Z79.899 Other long term (current) drug therapy; Z88.5 Allergy status to narcotic agent; Z91.048 Other nonmedicinal substance allergy status; Z87.891 Personal history of nicotine dependence
CPT/HCPCS: 93458; 93567; 99152; 99153; J1644; J2001; J2250; J3010; Q9967

== ENCOUNTER 2021-02-15 12:28 | Outpatient (CLI) | payer MEDICARE | END 2021-02-15 12:29 | disposition home or self-care (01) | LOC: BICMAMMO 12:28 | PROVIDERS: ATTEND Internal Medicine | DX: Z12.31 Encounter for screening mammogram for malignant neoplasm of breast (principal); Z80.3 Family history of malignant neoplasm of breast | CPT/HCPCS: 77063; 77067 ==

== ENCOUNTER 2021-03-17 13:21 | Outpatient (CLI) | payer MEDICARE | END 2021-03-17 13:22 | disposition home or self-care (01) | LOC: BICMAMMO 13:21 | PROVIDERS: ATTEND Internal Medicine | DX: Z13.820 Encounter for screening for osteoporosis (principal) | CPT/HCPCS: 77080 ==

== ENCOUNTER 2021-03-27 14:03 | Outpatient (CLI) | payer MEDICARE | END 2021-03-27 14:04 | disposition home or self-care (01) | LOC: BICCT 14:03 | PROVIDERS: ATTEND Radiology Radiation Oncology | DX: C21.1 Malignant neoplasm of anal canal (principal); Z92.21 Personal history of antineoplastic chemotherapy | CPT/HCPCS: 71260; 74177 ==

== ENCOUNTER 2021-07-18 14:46 | Outpatient (CLI) | payer MEDICARE | END 2021-07-18 14:47 | disposition home or self-care (01) | LOC: BICRAD 14:46 | PROVIDERS: ATTEND Internal Medicine | DX: M25.551 Pain in right hip (principal); M25.552 Pain in left hip; M16.0 Bilateral primary osteoarthritis of hip; Z85.048 Personal history of other malignant neoplasm of rectum, rectosigmoid junction, and anus ==

== ENCOUNTER 2022-12-31 08:00 | Outpatient (CLI) | payer MEDICARE ==
[2022-12-31] MEDS ORDERED: Iopamidol 370 76% 100 ML VIAL ONE (10:20)
== END 2022-12-31 08:01 | disposition home or self-care (01) ==
LOC: CT 08:00
PROVIDERS: ATTEND Radiology Radiation Oncology
DX: C21.1 Malignant neoplasm of anal canal (principal); N32.89 Other specified disorders of bladder; M79.89 Other specified soft tissue disorders; Z93.3 Colostomy status
CPT/HCPCS: 71260; 74177; 82565

== ENCOUNTER 2023-07-29 09:34 | Outpatient (CLI) | payer MEDICARE ==
[2023-07-29] MEDS ORDERED: Iopamidol 370 76% 100 ML VIAL ONE (11:53)
== END 2023-07-29 09:35 | disposition home or self-care (01) ==
LOC: CT 09:34
PROVIDERS: ATTEND Radiology Radiation Oncology
DX: C21.0 Malignant neoplasm of anus, unspecified (principal); R31.9 Hematuria, unspecified; K62.89 Other specified diseases of anus and rectum; N32.89 Other specified disorders of bladder; R91.1 Solitary pulmonary nodule; I70.0 Atherosclerosis of aorta; I25.10 Atherosclerotic heart disease of native coronary artery without angina pectoris; R16.0 Hepatomegaly, not elsewhere classified; N28.89 Other specified disorders of kidney and ureter; I70.8 Atherosclerosis of other arteries; K57.30 Diverticulosis of large intestine without perforation or abscess without bleeding; M16.12 Unilateral primary osteoarthritis, left hip; M47.9 Spondylosis, unspecified; Z93.3 Colostomy status; Z90.49 Acquired absence of other specified parts of digestive tract; Z90.710 Acquired absence of both cervix and uterus
CPT/HCPCS: 71260; 74178; 82565; Q9967